=== PATIENT | male | born 1975 | race Caucasian/White ===

== ENCOUNTER 2016-06-03 14:28 | Inpatient (IN) | payer SELFPAY ==
[~2016-06-03] VITALS: Ht 182.9 cm; Wt 93.5 kg
[2016-06-03 17:30] VITALS: BP 122/81
[2016-06-03] MEDS ORDERED: ONDANSETRON PF 4 MG/2 ML VIAL. IV PRN (18:15)
[2016-06-03] MEDS ORDERED: ACETAMINOPHEN 325 MG TABLET. PO PRN (18:15)
[2016-06-03 18:38] LABS: BASO # 0.1 x10^3/uL (0.0-0.2); BASO % 1 % (0-3); EOS % 6 % (0-3); HEMATOCRIT 36.3 % (39.0-53.0); HEMOGLOBIN 12.3 g/dL (13.0-17.5); LYMPH # 2.3 x10^3/uL (1.0-4.8); LYMPH % 21 % (24-48); MEAN CORPUSCULAR HEMOGLOBIN 30 pg (25-35); MEAN CORPUSCULAR HGB CONC 34 g/dL (31-37); MEAN CORPUSCULAR VOLUME 88 fL (79-100); MONO % 10 % (0-9); NEUT % 63 % (31-73); PLATELET COUNT 280 x10^3/uL (140-400); RED BLOOD COUNT 4.13 x10^6/uL (4.30-5.70); RED CELL DISTRIBUTION WIDTH 12.6 % (11.5-14.5); WHITE BLOOD COUNT 10.9 x10^3/uL (4.0-11.0)
[2016-06-03] MEDS: KETOROLAC 15 MG/ML VIAL. IV PRN (18:38)
[2016-06-03 18:48] LABS: PROTHROMBIN TIME PATIENT 12.7 SEC (11.7-14.0)
[2016-06-03 18:58] LABS: ALBUMIN 2.9 g/dL (3.4-5.0); ALBUMIN/GLOBULIN RATIO 0.9 (1.0-1.7); CALCIUM 8.5 mg/dL (8.5-10.1); CREATININE 0.8 mg/dL (0.7-1.3); GFR 108.2; POTASSIUM 3.7 mmol/L (3.5-5.1); TOTAL BILIRUBIN 0.4 mg/dL (0.2-1.0); TOTAL PROTEIN 6.2 g/dL (6.4-8.2)
[2016-06-03 19:00] VITALS: BP 120/72
[2016-06-03] MEDS ORDERED: VANCOMYCIN 2 GM in IV NORMAL SALINE 500ML BAG 500 ML IV ONE (19:00)
[2016-06-03] MEDS: FENTANYL PF 100 MCG/2 ML VIAL. IV PRN ×2 (20:45→23:48)
[2016-06-03] MEDS: OXYCODONE ER 10 MG TAB.ER.12H. PO SCH (20:45)
[2016-06-03] MEDS: VANCOMYCIN PER PHARMACY MC PRN ×2 (20:45→23:27)
[2016-06-03] MEDS: VANCOMYCIN 1.5 GM in IV NORMAL SALINE 500ML BAG 500 ML IV SCH (22:07)
[2016-06-03 23:00] VITALS: BP 106/62
[2016-06-04] VITALS (10 sets, daily range): BP systolic 92–121; BP diastolic 54–75
[2016-06-04] MEDS: KETOROLAC 15 MG/ML VIAL. IV PRN ×3 (01:31→15:08)
[2016-06-04] MEDS: FENTANYL PF 100 MCG/2 ML VIAL. IV PRN ×9 (02:25→21:43)
[2016-06-04] MEDS: VANCOMYCIN 1.5 GM in IV NORMAL SALINE 500ML BAG 500 ML IV SCH ×3 (06:00→21:43)
--- NOTE | 2016-06-04 08:03 | PDOC2 ---
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 Developed swelling, admitted to for IV abx, US noted large abscess yesterday. Does have a history of MRSA. Swelling and pain to arm feels worse today. Past Medical History Past Medical History MRSA, bipolar, paranoid schizophrenia, hep c, crohns Past Surgical History Past Surgical History: Cholecystectomy Family History Family History: Cancer (breast) Social History <1 pack per day ALCOHOL: none Drugs: Heroin Lives: Alone Current Medications Current Medications Current Medications Acetaminophen (Tylenol) 650 mg PRN Q6HRS PRN PO PAIN; Start 06/03/16 at 18:15 Fentanyl Citrate (Fentanyl 2ml Vial) 50 mcg PRN Q2HR PRN IV PAIN Last administered on 06/04/16 06:59; Start 06/03/16 at 18:15 Ketorolac Tromethamine (Toradol) 30 mg PRN Q6HRS PRN IV PAIN Last administered on 06/04/16 01:31; Start 06/03/16 at 18:15; Stop 06/08/16 at 18:14 Ondansetron HCl (Zofran) 4 mg PRN Q4HRS PRN IV NAUSEA/VOMITING; Start 06/03/16 at 18:15 Oxycodone HCl 10 mg 10 mg Q12HR PO Last administered on 06/03/16 20:45; Start 06/03/16 at 21:00 Vancomycin HCl/ Sodium Chloride (Iv Sodium Chloride 0.9% 500ml Bag) 500 ml @ 250 mls/hr Q8HRS IV Last administered on 06/04/16 06:00; Start 06/03/16 at 22: 00 Vancomycin HCl 1 each 1 each PRN DAILY PRN MC SEE COMMENTS Last administered on 06/03/16 23:27; Start 06/03/16 at 18:15 Vancomycin HCl/ Sodium Chloride (Iv Sodium Chloride 0.9% 500ml Bag) 500 ml @ 250 mls/hr 1X ONCE IV ; Start 06/03/16 at 19:00; Stop 06/03/16 at 20:42; Status DC Vancomycin HCl 1 each 1X ONCE MC ; Start 06/04/16 at 21:30; Stop 06/04/16 at 21 :31; Status Cancel Active Scripts Active Reported No Known Medications Prior To Admisstion (Info) Each 1 Each MC Allergies Allergies: Coded Allergies: Penicillins (Verified Allergy, Intermediate, hives, HAS TOLERATED AMOXICILLIN, 06/04/16) ROS General: YES: Chills, No: Other (fevers) PSYCHOLOGICAL ROS: No: Anxiety, Depression Eyes: No Blurry vision, No Double vision HEENT: No: Heacaches, Sore Throat Hematological and Lymphatic: No: Bleeding Problems, Blood Clots Respiratory: No: Cough, Shortness of breath Cardiovascular: No Chest Pain, No Palpitations Gastrointestinal: No Nausea, No Vomiting Genitourinary: No Dysuria, No Hematuria Musculoskeletal: Yes Joint Pain, Yes Joint Swelling Neurological: Yes Numbness/Tingling (left hand), No Confusion Skin: Yes Other (see hpi) Physical Exam General: Alert, Oriented X3, Cooperative, No acute distress HEENT: PERRLA, Mucous membr. moist/pink Lungs: Clear to auscultation, Normal air movement Heart: Regular rate, Normal S1, Normal S2, No murmurs Abdomen: Normal bowel sounds, Soft, No tenderness, No hepatosplenomegaly, No masses Extremities: Other (Left forearm, AC space with swelling, erythema, induration) Neuro: Normal speech, Sensation intact Psych/Mental Status: Mental status NL, Mood NL Vitals VITALS Vital Signs Date Time Temp Pulse Resp B/P Pulse Ox O2 Delivery O2 Flow Rate FiO2 06/04/16 07:43 Room Air 06/04/16 06:13 18 06/04/16 03:00 98.3 53 92/58 95 98.3 Labs Labs Laboratory Tests Test 06/03/16 18:30 White Blood Count 10.9x10^3/uL (4.0-11.0) Red Blood Count 4.13x10^6/uL (4.30-5.70) Hemoglobin 12.3g/dL (13.0-17.5) Hematocrit 36.3% (39.0-53.0) Mean Corpuscular Volume 88fL (79-100) Mean Corpuscular Hemoglobin 30pg (25-35) Mean Corpuscular Hemoglobin Concent 34g/dL (31-37) Red Cell Distribution Width 12.6% (11.5-14.5) Platelet Count 280x10^3/uL (140-400) Neutrophils (%) (Auto) 63% (31-73) Lymphocytes (%) (Auto) 21% (24-48) Monocytes (%) (Auto) 10% (0-9) Eosinophils (%) (Auto) 6% (0-3) Basophils (%) (Auto) 1% (0-3) Neutrophils # (Auto) 6.8x10^3uL (1.8-7.7) Lymphocytes # (Auto) 2.3x10^3/uL (1.0-4.8) Monocytes # (Auto) 1.1x10^3/uL (0.0-1.1) Eosinophils # (Auto) 0.6x10^3/uL (0.0-0.7) Basophils # (Auto) 0.1x10^3/uL (0.0-0.2) Prothrombin Time 12.7SEC (11.7-14.0) Prothromb Time International Ratio 1.0 (0.8-1.1) Activated Partial Thromboplast Time 35SEC (24-38) Sodium Level 140mmol/L (136-145) Potassium Level 3.7mmol/L (3.5-5.1) Chloride Level 106mmol/L (98-107) Carbon Dioxide Level 29mmol/L (21-32) Anion Gap 5 (6-14) Blood Urea Nitrogen 9mg/dL (8-26) Creatinine 0.8mg/dL (0.7-1.3) Estimated GFR (Cockcroft-Gault) 108.2 BUN/Creatinine Ratio 11 (6-20) Glucose Level 122mg/dL (70-99) Calcium Level 8.5mg/dL (8.5-10.1) Total Bilirubin 0.4mg/dL (0.2-1.0) Aspartate Amino Transf (AST/SGOT) 47U/L (15-37) Alanine Aminotransferase (ALT/SGPT) 96U/L (16-63) Alkaline Phosphatase 95U/L (46-116) Total Protein 6.2g/dL (6.4-8.2) Albumin 2.9g/dL (3.4-5.0) Albumin/Globulin Ratio 0.9 (1.0-1.7) Laboratory Tests Test 06/03/16 18:30 White Blood Count 10.9x10^3/uL (4.0-11.0) Red Blood Count 4.13x10^6/uL (4.30-5.70) Hemoglobin 12.3g/dL (13.0-17.5) Hematocrit 36.3% (39.0-53.0) Mean Corpuscular Volume 88fL (79-100) Mean Corpuscular Hemoglobin 30pg (25-35) Mean Corpuscular Hemoglobin Concent 34g/dL (31-37) Red Cell Distribution Width 12.6% (11.5-14.5) Platelet Count 280x10^3/uL (140-400) Neutrophils (%) (Auto) 63% (31-73) Lymphocytes (%) (Auto) 21% (24-48) Monocytes (%) (Auto) 10% (0-9) Eosinophils (%) (Auto) 6% (0-3) Basophils (%) (Auto) 1% (0-3) Neutrophils # (Auto) 6.8x10^3uL (1.8-7.7) Lymphocytes # (Auto) 2.3x10^3/uL (1.0-4.8) Monocytes # (Auto) 1.1x10^3/uL (0.0-1.1) Eosinophils # (Auto) 0.6x10^3/uL (0.0-0.7) Basophils # (Auto) 0.1x10^3/uL (0.0-0.2) Prothrombin Time 12.7SEC (11.7-14.0) Prothromb Time International Ratio 1.0 (0.8-1.1) Activated Partial Thromboplast Time 35SEC (24-38) Sodium Level 140mmol/L (136-145) Potassium Level 3.7mmol/L (3.5-5.1) Chloride Level 106mmol/L (98-107) Carbon Dioxide Level 29mmol/L (21-32) Anion Gap 5 (6-14) Blood Urea Nitrogen 9mg/dL (8-26) Creatinine 0.8mg/dL (0.7-1.3) Estimated GFR (Cockcroft-Gault) 108.2 BUN/Creatinine Ratio 11 (6-20) Glucose Level 122mg/dL (70-99) Calcium Level 8.5mg/dL (8.5-10.1) Total Bilirubin 0.4mg/dL (0.2-1.0) Aspartate Amino Transf (AST/SGOT) 47U/L (15-37) Alanine Aminotransferase (ALT/SGPT) 96U/L (16-63) Alkaline Phosphatase 95U/L (46-116) Total Protein 6.2g/dL (6.4-8.2) Albumin 2.9g/dL (3.4-5.0) Albumin/Globulin Ratio 0.9 (1.0-1.7) Assessment/Plan Assessment/Plan Left FA abscess/cellulitis, IV drug abuse bipolar, schizophrenia, hep c, crohns plan I&D, hx of mrsa, ID consulted for abx management NATHEN HANSEN MD 06/04/16 0958: CONSULT Allergies Allergies: Coded Allergies: Penicillins (Verified Allergy, Intermediate, hives, HAS TOLERATED AMOXICILLIN, 06/04/16) Assessment/Plan Assessment/Plan pt seen, interviewed and examined will drain this AM explained risks, including but not limited to bleeding, infection, numbness, possible loss of function he will proceed MOOSE MENDOZA APRN Jun 04, 2016 08:03 NATHEN HANSEN MD Jun 04, 2016 09:58
[2016-06-04] MEDS: OXYCODONE ER 10 MG TAB.ER.12H. PO SCH ×2 (08:11→20:51)
[2016-06-04] MEDS ORDERED: IV RINGERS,LACTATED 1000ML 1,000 ML IV SCH (09:03)
[2016-06-04] MEDS ORDERED: FENTANYL PF 100 MCG/2 ML VIAL. IV PRN (09:15)
[2016-06-04] MEDS ORDERED: LIDOCAINE 1% 1 ML SYRINGE. ID PRN (09:15)
[2016-06-04] MEDS ORDERED: ONDANSETRON PF 4 MG/2 ML VIAL. IV PRN (09:15)
[2016-06-04] MEDS ORDERED: PROCHLORPERAZINE 10 MG/2 ML VIAL. IV PRN (09:15)
[2016-06-04] MEDS ORDERED: MORPHINE SULFATE 2 MG/ML DISP.SYRIN. IV PRN (09:15)
--- NOTE | 2016-06-04 09:44 | PDOC ---
Infectious Disease Note ROS ROS GEN: Denies fevers, chills, sweats HEENT: Denies blurred vision, sore throat CV: Denies chest pain RESP: Denies shortness of air, cough GI: Denies n/v/d NEURO: Denies confusion, dizziness MSK: Denies weakness, joint pain/swelling Vital Sign Vital Signs Vital Signs Date Time Temp Pulse Resp B/P Pulse Ox O2 Delivery O2 Flow Rate FiO2 06/04/16 07:43 Room Air 06/04/16 07:00 97.7 58 16 121/71 99 97.7 Physical Exam PHYSICAL EXAM GENERAL: NAD, Alert HEENT: PERRL, OC/OP NECK: Supple, no JVD, no LN LUNGS: Clear HEART: S1S2, no gallop, no murmur ABD: Soft, NT, no organomegaly, no rebound EXT: No edema, no cyanosis 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, 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 x 3, no focal neurologic deficit SKIN: No rash IV: ok Labs Lab Laboratory Tests Test 06/03/16 18:30 White Blood Count 10.9x10^3/uL (4.0-11.0) Red Blood Count 4.13x10^6/uL (4.30-5.70) Hemoglobin 12.3g/dL (13.0-17.5) Hematocrit 36.3% (39.0-53.0) Mean Corpuscular Volume 88fL (79-100) Mean Corpuscular Hemoglobin 30pg (25-35) Mean Corpuscular Hemoglobin Concent 34g/dL (31-37) Red Cell Distribution Width 12.6% (11.5-14.5) Platelet Count 280x10^3/uL (140-400) Neutrophils (%) (Auto) 63% (31-73) Lymphocytes (%) (Auto) 21% (24-48) Monocytes (%) (Auto) 10% (0-9) Eosinophils (%) (Auto) 6% (0-3) Basophils (%) (Auto) 1% (0-3) Neutrophils # (Auto) 6.8x10^3uL (1.8-7.7) Lymphocytes # (Auto) 2.3x10^3/uL (1.0-4.8) Monocytes # (Auto) 1.1x10^3/uL (0.0-1.1) Eosinophils # (Auto) 0.6x10^3/uL (0.0-0.7) Basophils # (Auto) 0.1x10^3/uL (0.0-0.2) Prothrombin Time 12.7SEC (11.7-14.0) Prothromb Time International Ratio 1.0 (0.8-1.1) Activated Partial Thromboplast Time 35SEC (24-38) Sodium Level 140mmol/L (136-145) Potassium Level 3.7mmol/L (3.5-5.1) Chloride Level 106mmol/L (98-107) Carbon Dioxide Level 29mmol/L (21-32) Anion Gap 5 (6-14) Blood Urea Nitrogen 9mg/dL (8-26) Creatinine 0.8mg/dL (0.7-1.3) Estimated GFR (Cockcroft-Gault) 108.2 BUN/Creatinine Ratio 11 (6-20) Glucose Level 122mg/dL (70-99) Calcium Level 8.5mg/dL (8.5-10.1) Total Bilirubin 0.4mg/dL (0.2-1.0) Aspartate Amino Transf (AST/SGOT) 47U/L (15-37) Alanine Aminotransferase (ALT/SGPT) 96U/L (16-63) Alkaline Phosphatase 95U/L (46-116) Total Protein 6.2g/dL (6.4-8.2) Albumin 2.9g/dL (3.4-5.0) Albumin/Globulin Ratio 0.9 (1.0-1.7) Objective Assessment Left forearm abscess PCN allergy - has had amox H/o MRSA Substance abuse Plan Plan of Care Cont Vanc Add Zosyn F/u labs and cults # [id number] ELIZABETH GRIER MD Jun 04, 2016 09:44
[2016-06-04] MEDS ORDERED: PROPOFOL 100 ML IV ONE (09:46)
[2016-06-04] MEDS ORDERED: FENTANYL PF 100 MCG/2 ML VIAL. ONE (09:46)
[2016-06-04] MEDS ORDERED: BACITRACIN TOPICAL OINT 14GM TUBE. TP ONE (10:47)
[2016-06-04] MEDS: HYDROmorphone 2 MG/ML VIAL IV PRN ×4 (11:05→11:41)
--- NOTE | 2016-06-04 11:35 | PDOC ---
BRIEF OPERATIVE NOTE Date: Jun 04, 2016 Pre-Op Diagnosis abscess left forearm Post-Op Diagnosis same Procedure Performed incision and drainage Surgeon Gerard Anesthesia Type: General Blood Loss 10cc IV Fluid 200cc Specimens Obtained cultures Findings abscess Complications none NATHEN HANSEN MD Jun 04, 2016 11:35
[2016-06-04] MEDS: PIPERACILLIN/TAZOBACTAM 4.5 GM in IV NORMAL SALINE 100ML 100 ML IV SCH ×2 (12:20→17:40)
[2016-06-04] MEDS: VANCOMYCIN PER PHARMACY MC PRN (14:39)
[2016-06-05] MEDS: PIPERACILLIN/TAZOBACTAM 4.5 GM in IV NORMAL SALINE 100ML 100 ML IV SCH ×4 (00:10→18:07)
[2016-06-05] MEDS: FENTANYL PF 100 MCG/2 ML VIAL. IV PRN ×10 (00:47→22:16)
[2016-06-05 03:00] VITALS: BP 131/60
--- NOTE | 2016-06-05 05:57 | CONS ---
DATE OF CONSULTATION: 06/04/2016 PATIENT'S ROOM: 442 REQUESTING PHYSICIAN: Dr. Leung. REASON FOR CONSULTATION: Left forearm cellulitis, abscess. HISTORY OF PRESENT ILLNESS: The patient is a 40-year-old gentleman who approximately a week ago injected his left forearm with Opana. Over the course of several days, his arm became more swollen and red and became more painful, particularly on the last or so. He presented to [facility] where he was admitted to the hospital. He was placed on IV vancomycin as he had a white blood cell count of 16,000. Despite the antibiotics, he worsened and was transferred to [facility] for further care and evaluation. He is now scheduled to undergo surgery. He underwent an arm ultrasound on 06/02/2016, which showed a complex probable fluid collection measuring 9.1 cm. Currently, the patient is lying in bed. He is complaining of ongoing pain that has worsened since his admission. He has no gross fevers, but does have chills and sweats. No gross headaches. He has sore throat, occasional cough, occasional nausea. No vomiting, no diarrhea. No dysuria, frequency or urgency. PAST MEDICAL HISTORY: Positive for hepatitis C, history of Crohn's disease, previous MRSA infections of his feet. PAST SURGICAL HISTORY: Positive for cholecystectomy and local I and D. ALLERGIES: LISTED PENICILLIN; HOWEVER, HE HAS TOLERATED AMOXICILLIN. SOCIAL HISTORY: He is . He is a smoker. No alcohol, but he does inject heroin and Opana. 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 FAMILY HISTORY: Positive for lung cancer and breast cancer. CURRENT MEDICATIONS: Include vancomycin, Tylenol, fentanyl, Toradol, morphine. Other meds are available and reviewed in the chart. PHYSICAL EXAMINATION: VITAL SIGNS: He is afebrile, temperature 97.7, pulse 58, respirations 16, blood pressure 121/71, satting 99% on room air. CONSTITUTIONAL: He is pleasant, cooperative, in no acute distress. HEENT: Pupils are equal and reactive with normal conjunctivae. Oral cavity, pharynx is clear. NECK: Supple. No JVD. LUNGS: Clear to auscultation bilaterally. HEART: S1, S2. ABDOMEN: Soft, nontender, nondistended with positive bowel sounds. EXTREMITIES: Without clubbing or cyanosis. His left upper extremity at about the antecubital fossa has an inflamed area of erythema, warmth and induration approximately 10 cm in size or so. SKIN: Warm to touch without generalized signs of rash. He has multiple tattoos. No peripheral stigmata of endocarditis. NEUROLOGIC: Nonfocal. Moves all extremities. PSYCHIATRIC: Affect is appropriate. LABORATORY DATA: From 06/03/2016, white count 10.9, hemoglobin 12.3, platelets 280, segs are 63, lymphs are 21. Creatinine is 0.8, glucose 122, AST 47, ALT 96. Drug screen was positive for meths and cannabinoids. RADIOLOGY: Reviewed in the history of present illness. IMPRESSION: 1. Left forearm abscess. 2. Penicillin allergy, but he has tolerated amoxicillin. 3. History of methicillin-resistant Staphylococcus aureus. 4. Substance abuse. RECOMMENDATIONS: Continue vancomycin, Zosyn. Follow up labs and cultures. This was discussed with his family. Thank you for allowing me to participate in this patient's care. If you have any questions, please do not hesitate to contact me. ELIZABETH GRIER MD DR: LEIGHANN/benigno JOB#: [id number] / [id number]
[2016-06-05] MEDS: VANCOMYCIN 1.5 GM in IV NORMAL SALINE 500ML BAG 500 ML IV SCH ×3 (06:25→21:43)
[2016-06-05 07:00] VITALS: BP 95/66
[2016-06-05 07:13] LABS: BASO # 0.1 x10^3/uL (0.0-0.2); BASO % 1 % (0-3); EOS % 7 % (0-3); HEMATOCRIT 35.1 % (39.0-53.0); HEMOGLOBIN 11.7 g/dL (13.0-17.5); LYMPH # 1.4 x10^3/uL (1.0-4.8); LYMPH % 18 % (24-48); MEAN CORPUSCULAR HEMOGLOBIN 29 pg (25-35); MEAN CORPUSCULAR HGB CONC 33 g/dL (31-37); MEAN CORPUSCULAR VOLUME 88 fL (79-100); MONO % 11 % (0-9); NEUT % 63 % (31-73); PLATELET COUNT 300 x10^3/uL (140-400); RED BLOOD COUNT 3.98 x10^6/uL (4.30-5.70); RED CELL DISTRIBUTION WIDTH 12.8 % (11.5-14.5); WHITE BLOOD COUNT 8.1 x10^3/uL (4.0-11.0)
[2016-06-05 07:22] LABS: CALCIUM 8.2 mg/dL (8.5-10.1); CREATININE 0.8 mg/dL (0.7-1.3); GFR 108.2; POTASSIUM 4.6 mmol/L (3.5-5.1)
[2016-06-05] MEDS: OXYCODONE ER 10 MG TAB.ER.12H. PO SCH ×2 (08:06→21:43)
--- NOTE | 2016-06-05 08:29 | PDOC ---
Infectious Disease Note Subjective Subjective Better. Less pain ROS ROS GEN: Denies fevers, chills, sweats HEENT: Denies blurred vision, sore throat CV: Denies chest pain RESP: Denies shortness of air, cough GI: Denies n/v/d NEURO: Denies confusion, dizziness MSK: Denies weakness Vital Sign Vital Signs Vital Signs Date Time Temp Pulse Resp B/P Pulse Ox O2 Delivery O2 Flow Rate FiO2 06/05/16 08:06 14 Room Air 06/05/16 07:00 97.5 60 95/66 96 97.5 06/04/16 13:18 2.0 Physical Exam PHYSICAL EXAM GENERAL: NAD, Alert HEENT: PERRL, OC/OP -clear NECK: Supple, no JVD, no LN LUNGS: Clear HEART: S1S2, no gallop, no murmur ABD: Soft, NT, no organomegaly, no rebound EXT: No edema, no cyanosis. RUE dressed METHOD CONSULTANT: Alert, oriented x 3, no focal neurologic deficit SKIN: No rash IV: ok Labs Lab Laboratory Tests Test 06/05/16 06:35 White Blood Count 8.1x10^3/uL (4.0-11.0) Red Blood Count 3.98x10^6/uL (4.30-5.70) Hemoglobin 11.7g/dL (13.0-17.5) Hematocrit 35.1% (39.0-53.0) Mean Corpuscular Volume 88fL (79-100) Mean Corpuscular Hemoglobin 29pg (25-35) Mean Corpuscular Hemoglobin Concent 33g/dL (31-37) Red Cell Distribution Width 12.8% (11.5-14.5) Platelet Count 300x10^3/uL (140-400) Neutrophils (%) (Auto) 63% (31-73) Lymphocytes (%) (Auto) 18% (24-48) Monocytes (%) (Auto) 11% (0-9) Eosinophils (%) (Auto) 7% (0-3) Basophils (%) (Auto) 1% (0-3) Neutrophils # (Auto) 5.1x10^3uL (1.8-7.7) Lymphocytes # (Auto) 1.4x10^3/uL (1.0-4.8) Monocytes # (Auto) 0.9x10^3/uL (0.0-1.1) Eosinophils # (Auto) 0.6x10^3/uL (0.0-0.7) Basophils # (Auto) 0.1x10^3/uL (0.0-0.2) Sodium Level 143mmol/L (136-145) Potassium Level 4.6mmol/L (3.5-5.1) Chloride Level 108mmol/L (98-107) Carbon Dioxide Level 26mmol/L (21-32) Anion Gap 9 (6-14) Blood Urea Nitrogen 8mg/dL (8-26) Creatinine 0.8mg/dL (0.7-1.3) Estimated GFR (Cockcroft-Gault) 108.2 Glucose Level 86mg/dL (70-99) Calcium Level 8.2mg/dL (8.5-10.1) Objective Assessment Left forearm abscess. PCN allergy - has had amox H/o MRSA Substance abuse Plan Plan of Care Cont Vanc Add Zosyn F/u labs and cults ELIZABETH GRIER MD Jun 05, 2016 08:29
[2016-06-05 11:00] VITALS: BP 103/69
--- NOTE | 2016-06-05 11:40 | PDOC ---
SURGICAL PROGRESS NOTE Subjective tolerating diet feeling better Vital Signs Vital Signs Date Time Temp Pulse Resp B/P Pulse Ox O2 Delivery O2 Flow Rate FiO2 06/05/16 11:17 14 Room Air 06/05/16 07:00 97.5 60 95/66 96 97.5 06/04/16 13:18 2.0 I&O Intake and Output 06/05/16 07:00 Intake Total 4300 ml Output Total 2660 ml Balance 1640 ml Intake Oral 3350 ml IV Total 350 ml Other 600 ml Output Urine Total 2650 ml Estimated Blood Loss 10 ml # Voids 1 General: Alert, Oriented X3, Cooperative, No acute distress Skin: Other (lUE--wound clean, packing, edi drain in place) Labs Laboratory Tests Test 06/03/16 18:30 06/05/16 06:35 White Blood Count 10.9x10^3/uL (4.0-11.0) 8.1x10^3/uL (4.0-11.0) Red Blood Count 4.13x10^6/uL (4.30-5.70) 3.98x10^6/uL (4.30-5.70) Hemoglobin 12.3g/dL (13.0-17.5) 11.7g/dL (13.0-17.5) Hematocrit 36.3% (39.0-53.0) 35.1% (39.0-53.0) Mean Corpuscular Volume 88fL (79-100) 88fL (79-100) Mean Corpuscular Hemoglobin 30pg (25-35) 29pg (25-35) Mean Corpuscular Hemoglobin Concent 34g/dL (31-37) 33g/dL (31-37) Red Cell Distribution Width 12.6% (11.5-14.5) 12.8% (11.5-14.5) Platelet Count 280x10^3/uL (140-400) 300x10^3/uL (140-400) Neutrophils (%) (Auto) 63% (31-73) 63% (31-73) Lymphocytes (%) (Auto) 21% (24-48) 18% (24-48) Monocytes (%) (Auto) 10% (0-9) 11% (0-9) Eosinophils (%) (Auto) 6% (0-3) 7% (0-3) Basophils (%) (Auto) 1% (0-3) 1% (0-3) Neutrophils # (Auto) 6.8x10^3uL (1.8-7.7) 5.1x10^3uL (1.8-7.7) Lymphocytes # (Auto) 2.3x10^3/uL (1.0-4.8) 1.4x10^3/uL (1.0-4.8) Monocytes # (Auto) 1.1x10^3/uL (0.0-1.1) 0.9x10^3/uL (0.0-1.1) Eosinophils # (Auto) 0.6x10^3/uL (0.0-0.7) 0.6x10^3/uL (0.0-0.7) Basophils # (Auto) 0.1x10^3/uL (0.0-0.2) 0.1x10^3/uL (0.0-0.2) Prothrombin Time 12.7SEC (11.7-14.0) Prothromb Time International Ratio 1.0 (0.8-1.1) Activated Partial Thromboplast Time 35SEC (24-38) Sodium Level 140mmol/L (136-145) 143mmol/L (136-145) Potassium Level 3.7mmol/L (3.5-5.1) 4.6mmol/L (3.5-5.1) Chloride Level 106mmol/L (98-107) 108mmol/L (98-107) Carbon Dioxide Level 29mmol/L (21-32) 26mmol/L (21-32) Anion Gap 5 (6-14) 9 (6-14) Blood Urea Nitrogen 9mg/dL (8-26) 8mg/dL (8-26) Creatinine 0.8mg/dL (0.7-1.3) 0.8mg/dL (0.7-1.3) Estimated GFR (Cockcroft-Gault) 108.2 108.2 BUN/Creatinine Ratio 11 (6-20) Glucose Level 122mg/dL (70-99) 86mg/dL (70-99) Calcium Level 8.5mg/dL (8.5-10.1) 8.2mg/dL (8.5-10.1) Total Bilirubin 0.4mg/dL (0.2-1.0) Aspartate Amino Transf (AST/SGOT) 47U/L (15-37) Alanine Aminotransferase (ALT/SGPT) 96U/L (16-63) Alkaline Phosphatase 95U/L (46-116) Total Protein 6.2g/dL (6.4-8.2) Albumin 2.9g/dL (3.4-5.0) Albumin/Globulin Ratio 0.9 (1.0-1.7) Laboratory Tests Test 06/05/16 06:35 White Blood Count 8.1x10^3/uL (4.0-11.0) Red Blood Count 3.98x10^6/uL (4.30-5.70) Hemoglobin 11.7g/dL (13.0-17.5) Hematocrit 35.1% (39.0-53.0) Mean Corpuscular Volume 88fL (79-100) Mean Corpuscular Hemoglobin 29pg (25-35) Mean Corpuscular Hemoglobin Concent 33g/dL (31-37) Red Cell Distribution Width 12.8% (11.5-14.5) Platelet Count 300x10^3/uL (140-400) Neutrophils (%) (Auto) 63% (31-73) Lymphocytes (%) (Auto) 18% (24-48) Monocytes (%) (Auto) 11% (0-9) Eosinophils (%) (Auto) 7% (0-3) Basophils (%) (Auto) 1% (0-3) Neutrophils # (Auto) 5.1x10^3uL (1.8-7.7) Lymphocytes # (Auto) 1.4x10^3/uL (1.0-4.8) Monocytes # (Auto) 0.9x10^3/uL (0.0-1.1) Eosinophils # (Auto) 0.6x10^3/uL (0.0-0.7) Basophils # (Auto) 0.1x10^3/uL (0.0-0.2) Sodium Level 143mmol/L (136-145) Potassium Level 4.6mmol/L (3.5-5.1) Chloride Level 108mmol/L (98-107) Carbon Dioxide Level 26mmol/L (21-32) Anion Gap 9 (6-14) Blood Urea Nitrogen 8mg/dL (8-26) Creatinine 0.8mg/dL (0.7-1.3) Estimated GFR (Cockcroft-Gault) 108.2 Glucose Level 86mg/dL (70-99) Calcium Level 8.2mg/dL (8.5-10.1) Assessment/Plan s/p I&D abscess ID for abx management wound consult placed Problems: 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
[2016-06-05 15:00] VITALS: BP 101/64
[2016-06-05] MEDS: VANCOMYCIN PER PHARMACY MC PRN (15:09)
--- NOTE | 2016-06-05 15:22 | HP ---
ADMIT DATE: HISTORY OF PRESENT ILLNESS: The patient is a 40-year-old male patient who was admitted originally to [facility] as he came complaining of redness and pain in his left forearm and swelling, had injected Opana in his left forearm. He was admitted to [facility] and was started on IV vancomycin. His white cell count was high at 16,000 despite antibiotic, his pain and swelling gets worsened and a CT and ultrasound showed that it has what looked like an abscess and therefore he was transferred to this hospital to consult the surgical team as well as the infectious disease team. PAST MEDICAL HISTORY: Significant for hepatitis C, Crohn disease, previous history of MRSA infection in his feet. PAST SURGICAL HISTORY: Significant for cholecystectomy and also incision and drainage. ALLERGIES: SIGNIFICANT FOR PENICILLIN. FAMILY HISTORY: Positive for lung cancer and breast cancer. SOCIAL HISTORY: He is . He is a smoker, no alcohol, but does inject heroin and Opana. 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 He was transferred from [facility] to continue on vancomycin, Tylenol, fentanyl, Toradol, morphine. PHYSICAL EXAMINATION: GENERAL: On arrival to the [facility], he looked well and was clearly in no apparent respiratory distress, pale, but no jaundice, cyanosis or thyromegaly. No jugular venous distention. No lower limb edema. VITAL SIGNS: His heart rate was 75, blood pressure was 106/62, temperature was 98.3, respiratory rate was 18 and oxygen saturation was 95%. HEAD, EYES, EARS, NOSE AND THROAT: Shows normocephalic, atraumatic. NECK: Supple. HEART: Showed normal first and second heart sounds with no gallop, rub or murmur. CHEST: Clear to auscultation. No crepitation or rhonchi. ABDOMEN: Distended, soft, nontender. NEUROLOGIC: He is awake, alert, responding appropriately. Cranial nerves intact. EXTREMITIES: He moves extremities without difficulty. Examination of his left arm shows marked swelling, tenderness and fluctuation. LABORATORY DATA: Did have the ultrasound at [facility] showed that he has fluid collection that is about 9.1 cm. His lab work showed that his white cell count was 10,900, hemoglobin 12, hematocrit 36, MCV 88 and platelet count of 280,000. His chemistry showed serum sodium 140, potassium 3.7, chloride 106, bicarbonate 29, anion gap of 5, BUN 9, creatinine 0.8, estimated GFR was 108 mL per minute. His glucose was 122, calcium was 8.5. Total bilirubin, AST, ALT, alkaline phosphatase were normal. His AST, ALT slightly elevated. Total protein was 6.2, albumin 2.9. His prothrombin time was 12.79, INR 1, APTT was 35. IMPRESSION: Left forearm abscess, history of methicillin-resistant Staphylococcus infection, substance abuse, hepatitis C and Crohn disease. PLAN: My plan is to continue with all the medication including obviously vancomycin, pain management, we will consult the infectious disease specialist as well as General surgeon with aim of incision and drainage of his left forearm abscess. ROMELIA ISLAS MD DR: MARIELOS/benigno JOB#: [id number] / [id number]
--- NOTE | 2016-06-05 16:59 | OP ---
DATE OF SURGERY: 06/04/2016 PREOPERATIVE DIAGNOSIS: Abscess, left forearm. POSTOPERATIVE DIAGNOSIS: Abscess, left forearm. PROCEDURE: Incision and drainage. SURGEON: Nathen Hansen M.D. ANESTHESIA: General. ESTIMATED BLOOD LOSS: 10 mL. IV FLUID: 200 mL. INDICATIONS: The patient is a 40-year-old, who developed an abscess in his left forearm just distal to the antecubital fossa after using IV drugs, is here for drainage. DESCRIPTION OF PROCEDURE: The patient brought to the operating suite, given a general anesthetic, and the left arm was prepped and draped in usual sterile fashion. An area of fluctuance was aspirated to assure location of the purulent process. It was then opened, evacuated, and cultured. Digital exploration showed some extension distally. As such, a counter incision was made and a [place] drain delivered through the tract and out, secured to the skin with a silk stitch. When hemostasis was present, the wound was packed with 1-inch plain Nu Gauze soaked in saline. Sterile dressing applied. The patient was awakened from his anesthetic and taken to the recovery room in satisfactory condition. NATHEN HANSEN MD DR: PRASHANTH/benigno JOB#: [id number] / [id number]
[2016-06-05 19:25] VITALS: BP 109/67
[2016-06-05 23:42] VITALS: BP 110/68
[2016-06-06] MEDS: PIPERACILLIN/TAZOBACTAM 4.5 GM in IV NORMAL SALINE 100ML 100 ML IV SCH ×2 (00:21→05:24)
[2016-06-06] MEDS: FENTANYL PF 100 MCG/2 ML VIAL. IV PRN ×6 (00:21→14:08)
--- NOTE | 2016-06-06 00:48 | PN ---
DATE: SUBJECTIVE: The patient is resting slightly propped up in bed, in no apparent distress. On questioning him, he stated that his pain is much less than it was before as he underwent incision and drainage of his left forearm abscess with pus sent for culture and sensitivity, the results of which is still pending at the time of this dictation. PHYSICAL EXAMINATION: GENERAL: When I examined him, he looked well and was clearly in no apparent respiratory distress, pale, but no jaundice, cyanosis, or thyromegaly. No jugular venous distention. No limb edema. VITAL SIGNS: His heart rate was 75, blood pressure was 106/62, temperature was 98.3, respiratory rate was 18 and oxygen saturation was 95%. The rest of clinical examination is unremarkable, has not really changed. His left forearm abscess was incised and was paced with iodoform gauze, covered with dressing. His intake was 4300, output was 2660. LABORATORY DATA: This morning showed a serum sodium 143, potassium 4.6, chloride 108, bicarbonate 26, anion gap of 9, BUN 8, creatinine 0.8, estimated GFR was 118 mL per minute. His glucose ____, calcium was 8.2. His white cell count was 8100, hemoglobin 11.7, hematocrit 35, MCV 88 and platelet count of 300,000. ASSESSMENT: Left forearm abscess status post incision and drainage and Gram stain from the abscess showed few tiny gram-positive cocci suggestive of anaerobes. Zosyn was added by the infectious disease specialist. Other issues include substance abuse, hepatitis C, and Crohn's disease. PLAN: To continue with IV antibiotic, continue with pain management, will evaluate tomorrow and if he is stable and if everybody is happy ____ to be discharged, he can follow him as an outpatient at [facility]. ROMELIA ISLAS MD DR: MARIELOS/benigno JOB#: [id number] / [id number]
[2016-06-06 03:16] VITALS: BP 106/63
[2016-06-06] MEDS: VANCOMYCIN 1.5 GM in IV NORMAL SALINE 500ML BAG 500 ML IV SCH (06:27)
[2016-06-06 07:00] VITALS: BP 120/79
[2016-06-06] MEDS: OXYCODONE ER 10 MG TAB.ER.12H. PO SCH (08:24)
[2016-06-06] MEDS ORDERED: LINEZOLID 600 MG TABLET PO SCH (09:00)
[2016-06-06] MEDS ORDERED: AMOXICILLIN/K CLAV 875/125MG TABLET. PO SCH (09:00)
--- NOTE | 2016-06-06 09:00 | PDOC ---
Infectious Disease Note Subjective Subjective Better. Less pain ROS ROS GEN: Denies fevers, chills, sweats HEENT: Denies blurred vision, sore throat CV: Denies chest pain RESP: Denies shortness of air, cough GI: Denies n/v/d NEURO: Denies confusion, dizziness MSK: Denies weakness, joint pain/swelling Vital Sign Vital Signs Vital Signs Date Time Temp Pulse Resp B/P Pulse Ox O2 Delivery O2 Flow Rate FiO2 06/06/16 08:24 16 Room Air 06/06/16 07:00 97.5 81 120/79 96 97.5 Physical Exam PHYSICAL EXAM GENERAL: NAD, Alert HEENT: PERRL, OC/OP - clear NECK: Supple, no JVD, no LN LUNGS: Clear HEART: S1S2, no gallop, no murmur ABD: Soft, NT, no organomegaly, no rebound EXT: No edema, no cyanosis. Wound LUE packed and clean. Less erythema/swelling DIRECTOR PROCESS: Alert, oriented x 3, no focal neurologic deficit SKIN: No rash.Tattoos IV: ok Objective Assessment Left forearm abscess S/o I and D 06/04. Wound is clean PCN allergy - has had amox H/o MRSA Substance abuse Plan Plan of Care Discont Vanc/Zosyn Begin Zyvox/Augmentin for 7 days Wound care per wound team Ok to d/c home from ID standpoint ELIZABETH GRIER MD Jun 06, 2016 09:00
[2016-06-06 11:00] VITALS: BP 116/77
--- NOTE | 2016-06-06 12:13 | PDOC ---
SURGICAL PROGRESS NOTE Subjective tolerating diet Vital Signs Vital Signs Date Time Temp Pulse Resp B/P Pulse Ox O2 Delivery O2 Flow Rate FiO2 06/06/16 11:00 96.9 61 18 116/77 97 Room Air 96.9 I&O Intake and Output 06/06/16 07:00 Intake Total 1990 ml Output Total 4200 ml Balance -2210 ml Intake Oral 1990 ml Output Urine Total 4200 ml General: Alert, Oriented X3, Cooperative, No acute distress Skin: Other (LUE wound dressed) Labs Laboratory Tests Test 06/05/16 06:35 White Blood Count 8.1x10^3/uL (4.0-11.0) Red Blood Count 3.98x10^6/uL (4.30-5.70) Hemoglobin 11.7g/dL (13.0-17.5) Hematocrit 35.1% (39.0-53.0) Mean Corpuscular Volume 88fL (79-100) Mean Corpuscular Hemoglobin 29pg (25-35) Mean Corpuscular Hemoglobin Concent 33g/dL (31-37) Red Cell Distribution Width 12.8% (11.5-14.5) Platelet Count 300x10^3/uL (140-400) Neutrophils (%) (Auto) 63% (31-73) Lymphocytes (%) (Auto) 18% (24-48) Monocytes (%) (Auto) 11% (0-9) Eosinophils (%) (Auto) 7% (0-3) Basophils (%) (Auto) 1% (0-3) Neutrophils # (Auto) 5.1x10^3uL (1.8-7.7) Lymphocytes # (Auto) 1.4x10^3/uL (1.0-4.8) Monocytes # (Auto) 0.9x10^3/uL (0.0-1.1) Eosinophils # (Auto) 0.6x10^3/uL (0.0-0.7) Basophils # (Auto) 0.1x10^3/uL (0.0-0.2) Sodium Level 143mmol/L (136-145) Potassium Level 4.6mmol/L (3.5-5.1) Chloride Level 108mmol/L (98-107) Carbon Dioxide Level 26mmol/L (21-32) Anion Gap 9 (6-14) Blood Urea Nitrogen 8mg/dL (8-26) Creatinine 0.8mg/dL (0.7-1.3) Estimated GFR (Cockcroft-Gault) 108.2 Glucose Level 86mg/dL (70-99) Calcium Level 8.2mg/dL (8.5-10.1) Assessment/Plan s/p I&D abscess LUE--ok to dc once wound care set up, can FU in wound clinic with Dr Gee to remove edi drain 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
[2016-06-06 15:00] VITALS: BP 119/76
[2016-06-06] MEDS ORDERED: LINE600T PO (17:04)
[2016-06-06] MEDS ORDERED: AMOX1TAB61 PO (17:04)
[2016-06-06] MEDS ORDERED: OXYC-323 PO (17:04)
--- NOTE | 2016-06-06 23:34 | DS ---
DATE OF DISCHARGE: 06/06/2016 HOSPITAL COURSE: The patient is a 40-year-old male patient who was admitted to [facility] with left forearm cellulitis after injecting Opana. Subsequently an abscess has formed and transferred to [facility] and underwent incision and drainage. He was seen also by the surgical team and also seen by the Infectious Disease team and was started on Zosyn and vancomycin, all this redness has faded away. He was told how to change the dressing and had antibiotics changed to be given orally and was advised to come in to follow up with wound care clinic on 06/13/2016. PHYSICAL EXAMINATION: GENERAL: When I saw him this afternoon, he looked well and was clearly in no apparent respiratory distress. No pallor, jaundice, cyanosis or thyromegaly. No jugular venous distention. No limb edema. VITAL SIGNS: His heart rate was 69, blood pressure was 119/76, temperature was 97.4, respiratory rate was 18 and oxygen saturation was 96%. The rest of clinical examination is unremarkable. The surgical incision in his left forearm is covered with dressing. LABORATORY DATA: His lab works are all within normal limits. His white cell count was 8000, hemoglobin 11, hematocrit 35, MCV 88 and platelet count of 300,000. His chemistry showed a serum sodium 143, potassium 4.6, chloride 108, bicarbonate 26, anion gap is 9, BUN 8, creatinine 0.8, estimated GFR was 118 mL per minute. His glucose was 86 and calcium was 8.2. DISCHARGE MEDICATIONS: He was discharged home to continue on Augmentin 875 mg p.o. b.i.d. for 7 days, Zyvox 600 mg twice a day for 7 days, Percocet 5/325 mg one tablet every 6 hours as needed. He was given 24 tablets. FINAL DISCHARGE DIAGNOSES: Left forearm abscess status post incision and drainage, has chronic hepatitis C, Crohn's disease, ____ abuse, Opana and other drug abuse. ROMELIA ISLAS MD DR: MARIELOS/benigno JOB#: [id number] / [id number]
== END 2016-06-06 17:25 | disposition home or self-care (01) | DRG 579 ==
LOC: 4 NORTH 17:50
PROVIDERS: ADMIT Internal Medicine; ATTEND Internal Medicine
PROC: 0J9H0ZZ Drainage of Left Lower Arm Subcutaneous Tissue and Fascia, Open Approach (ICD-10-PCS; principal; 2016-06-04 11:00)
DX: L02.414 Cutaneous abscess of left upper limb (principal); E43 Unspecified severe protein-calorie malnutrition; F20.0 Paranoid schizophrenia; K50.90 Crohn's disease, unspecified, without complications; L03.114 Cellulitis of left upper limb; J02.9 Acute pharyngitis, unspecified; B18.2 Chronic viral hepatitis C; F17.210 Nicotine dependence, cigarettes, uncomplicated; F19.10 Other psychoactive substance abuse, uncomplicated; Z80.1 Family history of malignant neoplasm of trachea, bronchus and lung; Z80.3 Family history of malignant neoplasm of breast; Z86.14 Personal history of Methicillin resistant Staphylococcus aureus infection; Z88.0 Allergy status to penicillin; Z90.49 Acquired absence of other specified parts of digestive tract; Z79.899 Other long term (current) drug therapy; Z79.1 Long term (current) use of non-steroidal anti-inflammatories (NSAID); Z79.2 Long term (current) use of antibiotics; Z68.28 Body mass index [BMI] 28.0-28.9, adult
CPT/HCPCS: 36415; 80048; 80053; 85027; 85610; 85730; 87071; 87075; 87205; J1170; J1885; J2543; J2704; J3010; J3370; J7040

== ENCOUNTER 2018-10-16 07:36 | Emergency (ER) | payer SELFPAY ==
[~2018-10-16] VITALS: Ht 185.4 cm; Wt 104.3 kg
[~2018-10-16 07:36] MED LIST: AMOX1TAB61 PO; LINE600T37 PO; OXYC1TAB15 PO
[2018-10-16 07:52] VITALS: BP 126/84
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
== END 2018-10-16 08:33 | disposition home or self-care (01) ==
LOC: ER 07:36
DX: S50.12XA Contusion of left forearm, initial encounter (principal); F31.9 Bipolar disorder, unspecified; K21.9 Gastro-esophageal reflux disease without esophagitis; F20.0 Paranoid schizophrenia; Z91.041 Radiographic dye allergy status; Z88.0 Allergy status to penicillin; W18.09XA Striking against other object with subsequent fall, initial encounter; Y93.55 Activity, bike riding; Y92.828 Other wilderness area as the place of occurrence of the external cause; Y99.8 Other external cause status
CPT/HCPCS: 73090; 99284